=== PATIENT | female | born 1995 | race Caucasian/White ===

== ENCOUNTER 2024-02-18 11:09 | Emergency (ER) | payer BC, OTHER ==
[~2024-02-18] VITALS: Ht 160 cm; Wt 65.8 kg
[2024-02-18 12:29] LABS: *BILIRUBIN,URIN NEGATIVE (NEGATIVE); *BLOOD, URINE 2+ (NEGATIVE); *CLARITY,URINE CLEAR (CLEAR); *COLOR,URINE YELLOW (YELLOW); *KETONES,URINE TRACE (NEGATIVE); *PROTEIN,URINE NEGATIVE (NEGATIVE); *UROBILINOGEN,URINE 0.2 E.U./dl (NORMAL); LEUKOCYTE ESTERASE ,URINE NEGATIVE (NEGATIVE); NITRITE, URINE NEGATIVE (NEGATIVE); UGLUCOSE NEGATIVE (NEGATIVE)
[2024-02-18 12:31] LABS: BACTERIA,URINE FEW /HPF (NONE SEEN); RBC,URINE 50-80 /HPF (0-3); SQUAMOUS EPITHELIAL CELL,UR MODERATE /HPF (NONE SEEN)
[2024-02-18 13:14] LABS: BASOPHILS % (AUTO) 0.5 % (0.0-2.0); DIFFERENTIAL COMMENT 1; EOSINOPHILS # (AUTO) 0.2 K/uL (0.0-0.7); EOSINOPHILS % (AUTO) 2.1 % (0.0-7.0); HEMATOCRIT 41.6 % (31.2-41.9); HEMOGLOBIN 14.4 g/dL (10.9-14.3); LYMPHOCYTES # (AUTO) 1.6 K/uL (0.8-4.8); LYMPHOCYTES % (AUTO) 15.4 % (20.5-51.5); MEAN CORPUSCULAR HEMOGLOBIN 33.9 uug (24.7-32.8); MEAN CORPUSCULAR HGB CONC 35 g/dL (32.3-35.6); MEAN CORPUSCULAR VOLUME 98.2 fL (75.5-95.3); MONOCYTES # (AUTO) 0.7 K/uL (0.1-1.30); MONOCYTES % (AUTO) 6.7 % (0.0-11.0); NEUTROPHILS # (AUTO) 7.6 K/uL (1.8-8.9); NEUTROPHILS % (AUTO) 75.3 % (38.5-71.5); PLATELET COUNT (AUTO) 268 K/uL (179-408); RED BLOOD CELL COUNT(AUTO) 4.24 MIL/uL (3.63-4.92); RED CELL DISTRIBUTION WIDTH 12.8 % (12.3-17.7); WHITE BLOOD COUNT (AUTO) 10.1 K/uL (3.8-11.8)
[2024-02-18] MEDS ORDERED: CEFTRIAXONE /D5W 50ML IVPB **ER PYXIS IV ONE (13:18)
[2024-02-18] MEDS ORDERED: HYDROCODONE/APAP 5-325MG TABLET ONE (13:18)
[2024-02-18] MEDS: OXYCODONE/APAP 5-325 MG TABLET PO ONE (13:19)
[2024-02-18] MEDS: IV NORMAL SALINE 1000 ML BAG IV ONE (13:19)
[2024-02-18] MEDS: CEFTRIAXONE 1 G in IV DEXTROSE 5% 50 ML IV ONE (13:20)
[2024-02-18 13:21] LABS: CALCIUM 9.7 mg/dL (8.5-10.1); CREATININE 0.8 mg/dL (0.6-1.3); POTASSIUM 4.3 mmol/L (3.5-5.1)
[2024-02-18 13:30] LABS: *URINE HCG, QUAL NEGATIVE (NEGATIVE)
[2024-02-18] MEDS ORDERED: KETOROLAC TROMETHAMINE 30 MG INJ ONE (14:29)
[2024-02-18] MEDS ORDERED: ONDANSETRON 4 MG/2 ML VIAL ONE (14:29)
[2024-02-18] MEDS ORDERED: HYDROMORPHONE 1 MG/1 ML DISP.SYRIN ONE ×2 (14:29→17:33)
[2024-02-18] MEDS: HYDROMORPHONE 1 MG/1 ML DISP.SYRIN IV ONE ×2 (14:34→17:37)
[2024-02-18] MEDS: ONDANSETRON 4 MG/2 ML VIAL IV ONE (14:34)
[2024-02-18] MEDS: KETOROLAC TROMETHAMINE 30 MG INJ IVP ONE (14:34)
[2024-02-18] MEDS ORDERED: OXYC-133 PO (17:36)
[2024-02-18] MEDS ORDERED: CEFD300C3 PO (17:36)
[2024-02-18 18:28] VITALS: BP 123/78; O2SAT 97
== END 2024-02-18 18:30 | disposition home or self-care (01) ==
LOC: ER 11:09
DX: N30.01 Acute cystitis with hematuria (principal); K76.0 Fatty (change of) liver, not elsewhere classified; R10.2 Pelvic and perineal pain; N20.0 Calculus of kidney; Z87.440 Personal history of urinary (tract) infections; Z79.899 Other long term (current) drug therapy
CPT/HCPCS: 99285; 74176; 96365; 96375; 80048; 81001; 82607; 84703; 83735; 85025; 87040; 36415; 96376; 87086; J0696; J1885; J2405; J1171 ×2; A4606; A4663

== ENCOUNTER 2024-06-24 17:30 | Emergency (ER) | payer BC, OTHER ==
[~2024-06-24] VITALS: Ht 160 cm; Wt 65.8 kg
[~2024-06-24 17:30] MED LIST: CEFD300C3 PO; OXYC-133 PO
[2024-06-24] MEDS ORDERED: ACETAMINOPHEN 500 MG TABLET ONE ×2 (18:04→18:06)
[2024-06-24] MEDS ORDERED: IBUPROFEN 600 MG TABLET ONE (18:05)
[2024-06-24] MEDS: IBUPROFEN 600 MG TABLET PO ONE (18:08)
[2024-06-24] MEDS: ACETAMINOPHEN 500 MG TABLET PO ONE (18:09)
[2024-06-24] MEDS ORDERED: IBUP-1955 PO (18:35)
[2024-06-24] MEDS ORDERED: HYDR-4209 PO (18:35)
[2024-06-24] MEDS ORDERED: diphenhydrAMINE 50 MG/1 ML VIAL ONE ×2 (20:32→22:57)
[2024-06-24] MEDS ORDERED: MORPHINE SULFATE 4 MG/1 ML DISP.SYRIN ONE (20:33)
[2024-06-24] MEDS: diphenhydrAMINE 50 MG/1 ML VIAL IM ONE ×2 (20:44→23:00)
[2024-06-24] MEDS: MORPHINE SULFATE 4 MG/1 ML DISP.SYRIN IM ONE (20:44)
[2024-06-24 21:31] LABS: *URINE HCG, QUAL NEGATIVE (NEGATIVE)
[2024-06-24] MEDS ORDERED: HYDROMORPHONE 1 MG/1 ML DISP.SYRIN ONE (22:57)
[2024-06-24] MEDS: HYDROMORPHONE 1 MG/1 ML DISP.SYRIN IM ONE (23:00)
[2024-06-24 23:31] VITALS: BP 129/88; TEMP 98; O2SAT 99
== END 2024-06-24 23:02 | disposition home or self-care (01) ==
LOC: ER 17:30
DX: S20.229A Contusion of unspecified back wall of thorax, initial encounter (principal); T14.8XXA Other injury of unspecified body region, initial encounter; Z88.1 Allergy status to other antibiotic agents; Z88.2 Allergy status to sulfonamides; W01.0XXA Fall on same level from slipping, tripping and stumbling without subsequent striking against object, initial encounter; Y93.9 Activity, unspecified; Y92.9 Unspecified place or not applicable; Y99.0 Civilian activity done for income or pay
CPT/HCPCS: 99285; 72125; 84703; 72040; 72072; 72128; 72131; 96372 ×2; J1171; J1200 ×2; J2270; A4606; A4663; A9150

== ENCOUNTER 2024-08-04 11:22 | Emergency (ER) | payer BC, OTHER ==
[~2024-08-04] VITALS: Ht 160 cm; Wt 72.6 kg
[~2024-08-04 11:22] MED LIST changes: +HYDR-4209 PO; +IBUP-1955 PO
[2024-08-04 11:38] LABS: *BILIRUBIN,URIN NEGATIVE (NEGATIVE); *BLOOD, URINE 1+ (NEGATIVE); *CLARITY,URINE CLEAR (CLEAR); *COLOR,URINE YELLOW (YELLOW); *KETONES,URINE NEGATIVE (NEGATIVE); *PROTEIN,URINE NEGATIVE (NEGATIVE); *UROBILINOGEN,URINE 0.2 E.U./dl (NORMAL); LEUKOCYTE ESTERASE ,URINE NEGATIVE (NEGATIVE); NITRITE, URINE NEGATIVE (NEGATIVE); UGLUCOSE NEGATIVE (NEGATIVE)
[2024-08-04 11:39] LABS: *URINE HCG, QUAL NEGATIVE (NEGATIVE); BACTERIA,URINE FEW /HPF (NONE SEEN); SQUAMOUS EPITHELIAL CELL,UR FEW /HPF (NONE SEEN); WBC,URINE 0-3 /HPF (0-3)
[2024-08-04] MEDS ORDERED: ONDANSETRON 4 MG/2 ML VIAL ONE (12:15)
[2024-08-04 12:19] LABS: BASOPHILS # (AUTO) 0.1 K/UL (0.0-0.2); BASOPHILS % (AUTO) 0.9 % (0.0-2.0); DIFFERENTIAL COMMENT 1; EOSINOPHILS # (AUTO) 0.3 K/uL (0.0-0.7); EOSINOPHILS % (AUTO) 4.5 % (0.0-7.0); HEMATOCRIT 40.3 % (31.2-41.9); HEMOGLOBIN 13.7 g/dL (10.9-14.3); LYMPHOCYTES # (AUTO) 1.9 K/uL (0.8-4.8); LYMPHOCYTES % (AUTO) 26.6 % (20.5-51.5); MEAN CORPUSCULAR HEMOGLOBIN 33.3 uug (24.7-32.8); MEAN CORPUSCULAR HGB CONC 34 g/dL (32.3-35.6); MEAN CORPUSCULAR VOLUME 98.1 fL (75.5-95.3); MONOCYTES # (AUTO) 0.7 K/uL (0.1-1.30); MONOCYTES % (AUTO) 9.7 % (0.0-11.0); NEUTROPHILS # (AUTO) 4.1 K/uL (1.8-8.9); NEUTROPHILS % (AUTO) 58.3 % (38.5-71.5); PLATELET COUNT (AUTO) 248 K/uL (179-408); RED BLOOD CELL COUNT(AUTO) 4.11 MIL/uL (3.63-4.92); RED CELL DISTRIBUTION WIDTH 12.5 % (12.3-17.7)
[2024-08-04] MEDS: IV NORMAL SALINE 1000 ML BAG IV ONE (12:21)
[2024-08-04] MEDS: ONDANSETRON 4 MG/2 ML VIAL IV ONE (12:21)
[2024-08-04 12:25] LABS: CREATININE 0.7 mg/dL (0.6-1.3); POTASSIUM 4.1 mmol/L (3.5-5.1)
[2024-08-04 12:31] LABS: ALBUMIN 3.6 g/dL (3.4-5.0); BILIRUBIN,DIRECT 0.1 mg/dL (0.0-0.2); BILIRUBIN,TOTAL 0.3 mg/dL (0.2-1.0); TOTAL PROTEIN, SERUM 6.9 g/dL (6.4-8.2)
[2024-08-04] MEDS ORDERED: HYDROMORPHONE 1 MG/1 ML DISP.SYRIN ONE ×3 (12:42→16:51)
[2024-08-04] MEDS: HYDROMORPHONE 1 MG/1 ML DISP.SYRIN IV ONE ×3 (12:42→16:51)
[2024-08-04] MEDS ORDERED: CYANOCOBALAMIN 1000 MCG/ML VIAL ONE (14:01)
[2024-08-04] MEDS: CYANOCOBALAMIN 1000 MCG/ML VIAL IM ONE (14:02)
[2024-08-04] MEDS ORDERED: HYDR-3980 PO (17:21)
[2024-08-04] MEDS ORDERED: ONDA4TAB5 PO (17:21)
[2024-08-04] MEDS ORDERED: CYAN10006 IM (17:24)
[2024-08-04] MEDS ORDERED: SYRI-29 MC (17:24)
[2024-08-04 18:38] VITALS: BP 133/86; O2SAT 98
[2024-08-05] MEDS ORDERED: ONDA4TAB5 PO (17:33)
== END 2024-08-04 17:41 | disposition home or self-care (01) ==
LOC: ER 11:22
DX: A08.4 Viral intestinal infection, unspecified (principal); R30.0 Dysuria; R31.9 Hematuria, unspecified; E53.8 Deficiency of other specified B group vitamins; Z87.440 Personal history of urinary (tract) infections; Z88.1 Allergy status to other antibiotic agents; Z88.2 Allergy status to sulfonamides
CPT/HCPCS: 99285; 96374; 76856; 96361; 96375; 80076; 80048; 81001; 82607; 84703; 85025; 87086; 36415; 96376; 96372; J1171 ×3; J3420; J2405; J7040; A4606; A4663

== ENCOUNTER 2024-12-11 13:38 | Emergency (ER) | payer BC, OTHER ==
[~2024-12-11] VITALS: Ht 162.6 cm; Wt 65.8 kg
[~2024-12-11 13:38] MED LIST changes: +CYAN10006 IM; +HYDR-3980 PO; +ONDA4TAB5 PO; +SYRI-29 MC
[2024-12-11 14:10] LABS: *BILIRUBIN,URIN NEGATIVE (NEGATIVE); *CLARITY,URINE CLEAR (CLEAR); *COLOR,URINE Orange (YELLOW); *KETONES,URINE TRACE (NEGATIVE); *PROTEIN,URINE 1+ (NEGATIVE); *UROBILINOGEN,URINE 1.0 E.U./dl (NORMAL); LEUKOCYTE ESTERASE ,URINE NEGATIVE (NEGATIVE); NITRITE, URINE POSITIVE (NEGATIVE); UGLUCOSE TRACE (NEGATIVE)
[2024-12-11] MEDS ORDERED: NITROFURANTOIN/NITROFURAN MAC 100 MG CAPSULE PO ONE (14:12)
[2024-12-11] MEDS ORDERED: OXYCODONE/APAP 5-325 MG TABLET ONE (14:13)
[2024-12-11] MEDS: OXYCODONE/APAP 5-325 MG TABLET PO ONE (14:14)
[2024-12-11] MEDS: NITROFURANTOIN/NITROFURAN MAC 100 MG CAPSULE PO ONE (14:14)
[2024-12-11 14:15] VITALS: BP 136/85
[2024-12-11] MEDS ORDERED: HYDR-3980 PO (14:18)
[2024-12-11] MEDS ORDERED: ONDA4TAB11 PO (14:18)
[2024-12-11] MEDS ORDERED: NITR-84 PO (14:18)
[2024-12-11 14:37] LABS: *BLOOD, URINE TRACE (NEGATIVE)
[2024-12-11 14:38] LABS: *URINE HCG, QUAL NEGATIVE (NEGATIVE)
[2024-12-11 15:26] VITALS: BP 137/78; TEMP 97.6; O2SAT 96
[2024-12-11 15:29] LABS: SQUAMOUS EPITHELIAL CELL,UR FEW /HPF (NONE SEEN)
== END 2024-12-11 15:29 | disposition home or self-care (01) ==
LOC: ER 13:48
DX: R30.0 Dysuria (principal); R10.9 Unspecified abdominal pain; R19.7 Diarrhea, unspecified; F17.210 Nicotine dependence, cigarettes, uncomplicated; Z88.1 Allergy status to other antibiotic agents; Z88.2 Allergy status to sulfonamides; Z87.19 Personal history of other diseases of the digestive system
CPT/HCPCS: 84703; 87086; A4606; A4663

== ENCOUNTER 2025-03-20 12:03 | Emergency (ER) | payer BC, OTHER ==
[~2025-03-20] VITALS: Ht 160 cm; Wt 75.3 kg
[~2025-03-20 12:03] MED LIST changes: -IBUP-1955 PO; +IBUP-2760 PO; +NITR-84 PO; +ONDA-243 PO
[2025-03-20 12:07] VITALS: BP 127/87
[2025-03-20] MEDS ORDERED: ONDANSETRON ODT 4 MG TAB.RAPDIS ONE (12:43)
[2025-03-20] MEDS: ONDANSETRON ODT 4 MG TAB.RAPDIS SL ONE (12:45)
[2025-03-20 12:56] LABS: PLATELET COUNT (AUTO) 229 K/uL (179-408); RED BLOOD CELL COUNT(AUTO) 4.25 MIL/uL (3.63-4.92); RED CELL DISTRIBUTION WIDTH 12.3 % (12.3-17.7); WHITE BLOOD COUNT (AUTO) 8.4 K/uL (3.8-11.8)
[2025-03-20] MEDS ORDERED: HYDROCODONE/APAP 10-325 MG TABLET ONE (12:59)
[2025-03-20] MEDS ORDERED: CHOLECALCIFEROL 1,000 UNIT TABLET ONE (12:59)
[2025-03-20] MEDS: HYDROCODONE/APAP 10-325 MG TABLET PO ONE (13:02)
[2025-03-20] MEDS: CHOLECALCIFEROL 1,000 UNIT TABLET PO ONE (13:02)
[2025-03-20 13:10] LABS: *BILIRUBIN,URIN NEGATIVE (NEGATIVE); *BLOOD, URINE TRACE (NEGATIVE); *CLARITY,URINE CLEAR (CLEAR); *COLOR,URINE YELLOW (YELLOW); *KETONES,URINE NEGATIVE (NEGATIVE); *PROTEIN,URINE NEGATIVE (NEGATIVE); *UROBILINOGEN,URINE 0.2 E.U./dl (NORMAL); LEUKOCYTE ESTERASE ,URINE NEGATIVE (NEGATIVE); NITRITE, URINE NEGATIVE (NEGATIVE); UGLUCOSE NEGATIVE (NEGATIVE)
[2025-03-20 13:10] LABS: CREATININE 0.8 mg/dL (0.6-1.3); SODIUM SERUM 139 mmol/L (136-145); UREA NITROGEN, BLOOD 11 mg/dL (7-18)
[2025-03-20 13:15] LABS: ASPARTATE AMINOTRANSFERASE < 5 U/L (15-37); TOTAL PROTEIN, SERUM 7.1 g/dL (6.4-8.2)
[2025-03-20 13:25] LABS: *URINE HCG, QUAL NEGATIVE (NEGATIVE)
[2025-03-20 13:36] LABS: SQUAMOUS EPITHELIAL CELL,UR MODERATE /HPF (NONE SEEN)
[2025-03-20] MEDS ORDERED: CYAN-10 IM (14:10)
[2025-03-20] MEDS ORDERED: OXYC-128 PO (14:10)
[2025-03-20] MEDS ORDERED: ONDA4TAB5 PO (14:10)
[2025-03-20] MEDS ORDERED: SYRI-29 MC (14:10)
[2025-03-20] MEDS ORDERED: OXYCODONE/APAP 5-325 MG TABLET ONE (14:17)
[2025-03-20] MEDS ORDERED: CYANOCOBALAMIN 1000 MCG/ML VIAL ONE (14:17)
[2025-03-20] MEDS: OXYCODONE/APAP 5-325 MG TABLET PO ONE (14:17)
[2025-03-20] MEDS: CYANOCOBALAMIN 1000 MCG/ML VIAL IM ONE (14:18)
[2025-03-20 14:23] VITALS: BP 119/76; O2SAT 97
== END 2025-03-20 14:24 | disposition home or self-care (01) ==
LOC: ER 12:03
DX: B97.89 Other viral agents as the cause of diseases classified elsewhere (principal); R11.2 Nausea with vomiting, unspecified; F17.200 Nicotine dependence, unspecified, uncomplicated; R10.32 Left lower quadrant pain; Z88.1 Allergy status to other antibiotic agents; Z88.2 Allergy status to sulfonamides; E53.8 Deficiency of other specified B group vitamins; J98.8 Other specified respiratory disorders
CPT/HCPCS: 99284; 87804 ×2; 80076; 80048; 81001; 82607; 84703; 85025; 36415; 96372; J3420; A4606; A4663; Q0162